=== PATIENT | male | born 1990 | race Caucasian/White ===

== ENCOUNTER 2017-08-21 14:32 | Emergency (ER) | payer BC ==
[2017-08-21 14:46] VITALS: PULSE 78
[2017-08-21] MEDS ORDERED: Sodium Chloride 0.9% 1,000 ML IV ONE (15:03)
--- NOTE | 2017-08-21 15:12 | C.PDOC ---
History Of Present Illness 26yo male presents to ED stating 1 hour prior to arrival, he went to urinate and noted blood and subsequent severe left sided flank pain. Patient states he has never had such symptoms before; he reports associated nausea but denies any vomiting, diarrhea, abdominal pain. Otherwise, patient has no other medical complaints. Time Seen by Provider: 08/21/17 14:49 Chief Complaint (Nursing): Abdominal Pain History Per: Patient History/Exam Limitations: no limitations Onset/Duration Of Symptoms: Hrs (1) Current Symptoms Are (Timing): Still Present Location Of Pain/Discomfort: Other (left flank) Quality Of Discomfort: "Pain" Associated Symptoms: Nausea, Urinary Symptoms. denies: Fever, Chills, Vomiting , Chest Pain Additional History Per: Patient Past Medical History Reviewed: Historical Data, Nursing Documentation, Vital Signs Vital Signs: Last Vital Signs Temp 97.5 F L 08/21/17 14:43 Pulse 78 08/21/17 14:43 Resp 20 08/21/17 14:43 BP 155/70 H 08/21/17 14:43 Pulse Ox 99 08/21/17 15:24 - Medical History PMH: No Chronic Diseases Surgical History: No Surg Hx Family History: States: Other Other Family History: mother with hx of kidney stones - Social History Hx Alcohol Use: Yes Hx Substance Use: No - Immunization History Hx Tetanus Toxoid Vaccination: No Hx Influenza Vaccination: No Hx Pneumococcal Vaccination: No Review Of Systems Except As Marked, All Systems Reviewed And Found Negative. Constitutional: Negative for: Fever, Chills Cardiovascular: Negative for: Chest Pain Respiratory: Negative for: Shortness of Breath Gastrointestinal: Positive for: Nausea, Other (left flank pain). Negative for: Abdominal Pain Genitourinary: Positive for: Hematuria Physical Exam - Physical Exam Appears: Non-toxic, In Acute Distress Skin: Warm, Dry Head: Atraumatic, Normacephalic Eye(s): bilateral: Normal Inspection Neck: Normal ROM, Supple Chest: Symmetrical Cardiovascular: Rhythm Regular Respiratory: Normal Breath Sounds Gastrointestinal/Abdominal: Soft, Tenderness (left sided flank tenderness), No Guarding, No Rebound Back: No CVA Tenderness Extremity: Normal ROM, No Pedal Edema Neurological/Psych: Oriented x3 ED Course And Treatment - Laboratory Results Result Diagrams: 08/21/17 15:11 08/21/17 15:11 Lab Interpretation: No Acute Changes O2 Sat by Pulse Oximetry: 99 (RA) Pulse Ox Interpretation: Normal - CT Scan/US CT abdomen and pelvis Other Rad Studies (CT/US): Read By Radiologist, Radiology Report Reviewed CT/US Interpretation: Accession No. : [id number]. Patient Name / ID : TORRI MEYER / [id number]. Exam Date : 08/21/2017 15:57:50 ( Approved ). Study Comment : Sex / Age : M / 26Y. Creator : Mary Dewey. Dictator : Nishant Pelayo MD. Learning And Development Intern : [employer] Claim Adjuster : Nishant Pelayo MD. Approver2 : Report Date : 08/21/2017 16:02:05. My Comment : . PROCEDURE: CT Abdomen and Pelvis with Oral contrast. HISTORY: Abdominal pain. COMPARISON: No prior. TECHNIQUE: Contiguous axial images of the abdomen and pelvis performed without oral or intravenous contrast material. Additional 2D sagittal and coronal reformats generated. Radiation dose: Total exam DLP = 494.83 mGy-cm. This CT exam was performed using one or more of the following dose reduction techniques: Automated exposure control, adjustment of the mA and/ or kV according to patient size, and/or use of iterative reconstruction technique. FINDINGS: LOWER THORAX: There is a small hiatal hernia. Lung bases clear. LIVER: Liver exhibits normal size. No obvious hepatic mass collection or calcification. GALLBLADDER AND BILE DUCTS: Unremarkable. PANCREAS: Unremarkable. No mass. No ductal dilatation. SPLEEN: Unremarkable. No splenomegaly. ADRENALS: Unremarkable. KIDNEYS AND URETERS: There is a small approximately 2 mm calculus within the proximal left ureter with dilatation of the ureter proximal to this including the renal pelvis and renal collecting system. Punctate calcification seen in the midpole left renal collecting system as well. Punctate calcification There is also punctate calcifications seen in the mid pole collecting system right kidney. BLADDER: Urinary bladder incompletely distended which in part accounts thick-walled appearance. Muscular hypertrophy may contribute. No evidence of intraluminal urinary bladder calculi. REPRODUCTIVE: Unremarkable. APPENDIX: Normal- appearing appendix best seen on axial image number [id number]. BOWEL: Evaluation of the bowel is limited due to the lack of oral contrast material. PERITONEUM: Unremarkable. No fluid collection. No free air. Small fat containing umbilical hernia. LYMPH NODES: There are several small nonspecific of retroperitoneal lymph nodes. VASCULATURE: Unremarkable. No aortic aneurysm. BONES: No fracture or destructive lesion. OTHER FINDINGS: None. IMPRESSION: Small approximately 2 mm calculus within the proximal left ureter with dilatation of the ureter proximal to this including the renal pelvis and renal collecting system. Punctate calcification seen in the midpole left renal collecting system as well. Punctate calcification There is also punctate calcifications seen in the mid pole collecting system right kidney. Reevaluation Time: 16:38 Reassessment Condition: Improved Medical Decision Making Medical Decision Making: Plan: -- Labs -- Urinalysis -- CT Abdomen/Pelvis w/o contrast -- IV Fluids -- Toradol 30mg IVP Disposition Counseled Patient/Family Regarding: Studies Performed, Diagnosis, Need For Followup, Rx Given - Disposition Referrals: [facility] at [facility] [Outside] Stone Mccarty MD [Staff Provider] - Disposition: HOME/ ROUTINE Disposition Time: 16:41 Condition: IMPROVED Prescriptions: Ketorolac Tromethamine [Toradol] 10 mg PO QID PRN #20 tab PRN Reason: Pain, Severe (8-10) oxyCODONE/Acetaminophen [Percocet 5/325 mg Tab] 1 tab PO QID PRN #10 tab PRN Reason: Pain Tamsulosin [Flomax] 0.4 mg PO DAILY #30 cap Instructions: Kidney Stones in Adults Forms: [id number] (Amharic) - Clinical Impression Clinical Impression: Kidney stone on left side - Scribe Statement The provider has reviewed the documentation as recorded by the Scribe (Dari Coates) Provider Attestation: All medical record entries made by the Scribe were at my direction and personally dictated by me. I have reviewed the chart and agree that the record accurately reflects my personal performance of the history, physical exam, medical decision making, and the department course for this patient. I have also personally directed, reviewed, and agree with the discharge instructions and disposition.
[2017-08-21 15:21] LABS: BASO # 0.1 K/uL (0.0-0.2); BASO % 0.8 % (0.0-2.0); EOS # 0.1 K/uL (0.0-0.7); EOS % 1.7 % (0.0-4.0); HEMOGLOBIN 14.7 g/dL (12.0-18.0); LYMPH # 2.9 K/uL (1.0-4.3); LYMPH % 40.4 % (20.0-40.0); MEAN CELL VOLUME 89.3 fL (80.0-94.0); MEAN CORPUSCULAR HEMOGLOBIN 30.9 pg (27.0-31.0); MEAN CORPUSCULAR HGB CONC 34.6 g/dL (33.0-37.0); MEAN PLATELET VOLUME 8.2 fL (7.2-11.7); MONO # 0.6 K/uL (0.0-0.8); MONO % 8.8 % (0.0-10.0); NEUT # 3.5 K/uL (1.8-7.0); NEUT % 48.3 % (50.0-75.0); NRBC % 0.1 % (0.0-2.0); RBC 4.78 Mil/uL (4.40-5.90); WHITE BLOOD COUNT 7.2 K/uL (4.8-10.8)
[2017-08-21 15:49] LABS: ALB/GLOB RATIO 1.8 (1.0-2.1); ALBUMIN 4.5 g/dL (3.5-5.0); ALT/SGPT 23 U/L (21-72); AST/SGOT 33 U/L (17-59); BLOOD UREA NITROGEN 15 mg/dL (9-20); CALCIUM 9.6 mg/dl (8.6-10.4); GFR AFRICAN-AMERICAN > 60; GFR NON-AFRICAN AMERICAN > 60
--- NOTE | 2017-08-21 16:35 | CT ---
PROCEDURE: CT Abdomen and Pelvis with Oral contrast. HISTORY: Abdominal pain COMPARISON: No prior TECHNIQUE: Contiguous axial images of the abdomen and pelvis performed without oral or intravenous contrast material. Additional 2D sagittal and coronal reformats generated. Radiation dose: Total exam DLP = 494.83 mGy-cm. This CT exam was performed using one or more of the following dose reduction techniques: Automated exposure control, adjustment of the mA and/or kV according to patient size, and/or use of iterative reconstruction technique. FINDINGS: LOWER THORAX: There is a small hiatal hernia. Lung bases clear. LIVER: Liver exhibits normal size. No obvious hepatic mass collection or calcification. GALLBLADDER AND BILE DUCTS: Unremarkable. PANCREAS: Unremarkable. No mass. No ductal dilatation. SPLEEN: Unremarkable. No splenomegaly. ADRENALS: Unremarkable. KIDNEYS AND URETERS: There is a small approximately 2 mm calculus within the proximal left ureter with dilatation of the ureter proximal to this including the renal pelvis and renal collecting system. Punctate calcification seen in the midpole left renal collecting system as well. Punctate calcification There is also punctate calcifications seen in the mid pole collecting system right kidney. BLADDER: Urinary bladder incompletely distended which in part accounts thick-walled appearance. Muscular hypertrophy may contribute. No evidence of intraluminal urinary bladder calculi REPRODUCTIVE: Unremarkable. APPENDIX: Normal-appearing appendix best seen on axial image number [id number] BOWEL: Evaluation of the bowel is limited due to the lack of oral contrast material. PERITONEUM: Unremarkable. No fluid collection. No free air. Small fat containing umbilical hernia. LYMPH NODES: There are several small nonspecific of retroperitoneal lymph nodes. VASCULATURE: Unremarkable. No aortic aneurysm. BONES: No fracture or destructive lesion. OTHER FINDINGS: None. IMPRESSION: Small approximately 2 mm calculus within the proximal left ureter with dilatation of the ureter proximal to this including the renal pelvis and renal collecting system. Punctate calcification seen in the midpole left renal collecting system as well. Punctate calcification There is also punctate calcifications seen in the mid pole collecting system right kidney.
[2017-08-21 17:19] LABS: URINE BILIRUBIN NEGATIVE (NEGATIVE); URINE BLOOD 3+ (NEGATIVE); URINE CLARITY Hazy (Clear); URINE COLOR Yellow (YELLOW); URINE GLUCOSE (UA) NORMAL (Normal); URINE LEUKOCYTE ESTERASE NEG Leu/uL (Negative); URINE PROTEIN 1+ mg/dL (NEGATIVE); URINE UROBILINOGEN NORMAL mg/dL (0.2-1.0)
[2017-08-21 17:22] VITALS: BP 128/70; RESP 18; TEMP 98; O2SAT 100
== END 2017-08-21 17:21 | disposition home or self-care (01) ==
LOC: C.ER 14:32
DX: N20.0 Calculus of kidney (principal)
CPT/HCPCS: 74176; 80053; 81001; 85025; 96361; 96374; 99284; J1885; J7030

== ENCOUNTER 2017-08-30 00:13 | Emergency (ER) | payer BC ==
[2017-08-30 00:35] VITALS: RESP 18; TEMP 98.1
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
[2017-08-30 01:40] VITALS: BP 122/72; PULSE 72; O2SAT 98
--- NOTE | 2017-08-30 08:53 | RAD ---
PROCEDURE: Left Wrist Radiographs. HISTORY: injury COMPARISON: None. FINDINGS: BONES: Normal. No fracture. JOINTS: Normal. No dislocation. SOFT TISSUES: Normal. OTHER FINDINGS: None. IMPRESSION: Normal left wrist radiographs.
== END 2017-08-30 01:40 | disposition home or self-care (01) ==
LOC: C.ER 00:13 → SUPCPDRO 00:13 → C.ER 01:40
DX: S52.612A Displaced fracture of left ulna styloid process, initial encounter for closed fracture (principal); V19.88XA Pedal cyclist (driver) (passenger) injured in other specified transport accidents, initial encounter